=== PATIENT | male | born 1960 | race Caucasian/White ===

== ENCOUNTER → 2016-09-26 | Outpatient (CLI) | payer OTHER ==
[2015-08-28 11:04] VITALS: BP 106/69
[~2016-09-26] MED LIST: ASPI325T4 PO; ATOR40TA PO; BACL10TA PO; LISI2.5T PO; METO25TA4 PO; NITR0.4T6 SL; OXYC1TAB7 PO; PRAS10TA4 PO; REGADENOSON 0.4 MG/5 ML DISP.SYRIN. IV ONE
--- NOTE | 2016-09-26 14:34 | RAD ---
APPROVED REPORT Test Type: Pharmacological Stress Nurse/Tech: Allison Tran R.N. Test Indications: CAD Cardiac History: [place] 2016 with 2 stents, HTN Medications: SEE EMR Medical History: SEE EMR Resting ECG: SB Resting Heart Rate: 53 bpm Resting Blood Pressure: 98/64mmHg Pretest Chest Pain: None Nurse/Tech Notes S1S2, lungs CTA but diminished througout, denied chest pain, SOA and dizziness. Consent: The procedure was explained to the patient in lay terms. Informed consent was witnessed. Erwin eout was entered into [employer]. History and Stress Test performed by Allison Tran R.N. Pharm. Details Pharmacologic stress testing was performed using 0.4mg per 5ml of regadenoson given intravenously ove r 7-10 seconds. Stress Symptoms SOA, nausea. POST EXERCISE Reason for Termination: Infusion complete Max HR: 91 bpm Max Blood Pressure: 108/61mmHg Blood Pressure response to exercise: Normal blood pressure response during stress. Heart Rate response to exercise: Normal Chest Pain: No. Arrhythmia: No. ST Change: No. INTERPRETATION Stress EKG Conclusion: Resting EKG shows a sinus rhythm and mild nonspecific ST segment changes. The stress EKG showed no significant changes from baseline. No EKG evidence of stress-induced ischemia. Imaging Protocol IMAGE PROTOCOL: Rest Tc-99m/stress Tc-99m 1 day Rest: Stress: Viability: Radiopharm.Tc99m [id number] Sestamibi Dose12.2mCi 34.7mCi Duration 15min. 12min. Img Date 09/26/2016 09/26/2016 Inj-Img [id number]. 60min. Rest Admin Site:IV - Right AntecubitalAdministrator:LI Calvo Stress Admin Site: IV - Right AntecubitalAdministrator: LI Calvo STRESS DATA End Diast. Vol.86.0mlAv. Heart Rate60.0bpm End Syst. Vol.26.0mlCO Index BSA0.0L/min Myocardial Xdti248.0gEject. Dovsvkem09.0% Stress Rates Pk. Fill Rate1.93EDV/secLVtime Pk. Fill 129.14msec Pk. Empty Rate3.34ESV/secLVtime Pk. Xplem239.85msec 1/3 Pk. Fill1.49EDV/sec Stress Scores Regional WT1.00Summed WT10.00 Regional WM0.00Summed WM0.00 LV Perfusion The stress scans showed no significant defects. The rest scans showed no significant defects. Nuclear imaging shows no reversible ischemia or infarct. [employer] Left ventricular systolic function is normal with an ejection fraction of 70%. LV Perf. Quant 17 Seg. SSS0.00 17 Seg. SRS0.00 17 Seg. SDS0.00 Stress Defect Extent (% LAD)0.00Rest Defect Extent (% LAD)0.00Rev. Defect Extent (% LAD)0.00 Stress Defect Extent (% LCX) 0.00Rest Defect Extent (% LCX)11.30Rev. Defect Extent (% LCX)0.00 Stress Defect Extent (% RCA)0.00Rest Defect Extent (% RCA)0.00Rev. Defect Extent (% RCA)0.00 Stress Defect Extent (% MIRZA)0.00Rest Defect Extent (% MIRZA)2.00Rev. Defect Extent (% MIRZA)0.00 Conclusion 1. No EKG evidence of stress-induced ischemia. 2. Nuclear imaging shows no reversible ischemia or infarct. 3. Normal left ventricular systolic function with an ejection fraction of 70%. 4. Low risk Lexiscan nuclear stress test.
== END | disposition home or self-care (01) ==
LOC: NM 07:57
PROVIDERS: ATTEND Internal Medicine Cardiovascular Disease
DX: I25.10 Atherosclerotic heart disease of native coronary artery without angina pectoris (principal)
CPT/HCPCS: 78452; 93017; 96374; 96375; 96376; J2785